=== PATIENT | female | born 1990 | race Caucasian/White ===

== ENCOUNTER 2019-11-12 19:43 | Emergency (ER) | payer OTHER ==
[2019-11-12] MEDS ORDERED: Cyclobenzaprine 10 MG Tab PO ONE (20:08)
[2019-11-12] MEDS ORDERED: Ketorolac 60 MG/2 ML SDV IM ONE (20:08)
--- NOTE | 2019-11-12 20:31 | EDM.PDOC ---
ED HPI GENERAL MEDICAL PROBLEM - General Stated Complaint: ARM INJURY Time Seen by Provider: 11/12/19 20:00 Source of Information: Reports: Patient History Limitations: Reports: No Limitations - History of Present Illness INITIAL COMMENTS - FREE TEXT/NARRATIVE: Patient presented to the ED because of right shoulder pain. She was lifting at work on November 09 and heard a pop on her right shoulder. The pain is sharp,6/10, worse with movement. - Related Data Home Meds: Home Meds Cyclobenzaprine [Flexeril] 10 mg PO TID PRN #30 tab 11/12/19 [Rx] Ibuprofen 800 mg PO TID PRN #30 tablet 11/12/19 [Rx] Review of Systems - Review of Systems Review Of Systems: See Below Constitutional: Reports: No Symptoms Ears: Reports: No Symptoms Nose: Reports: No Symptoms Mouth/Throat: Reports: No Symptoms Respiratory: Reports: No Symptoms Cardiovascular: Reports: No Symptoms GI/Abdominal: Reports: No Symptoms Genitourinary: Reports: No Symptoms Musculoskeletal: Reports: Shoulder Pain Skin: Reports: No Symptoms ED EXAM, GENERAL - Physical Exam Exam: See Below Exam Limited By: No Limitations General Appearance: Alert, No Apparent Distress Ears: Normal External Exam Nose: Normal Inspection, Normal Mucosa, No Blood Throat/Mouth: Normal Inspection, Normal Lips, Normal Teeth Head: Atraumatic, Normocephalic Neck: Normal Inspection, Supple, Non-Tender, Full Range of Motion Respiratory/Chest: No Respiratory Distress, Lungs Clear, Normal Breath Sounds Cardiovascular: Normal Peripheral Pulses, Regular Rate, Rhythm, No Edema, No Gallop GI/Abdominal: Normal Bowel Sounds, Soft, Non-Tender, No Organomegaly Back Exam: Normal Inspection, Full Range of Motion Extremities: Normal Inspection, Non-Tender, Other (decrease ROM rt shoulder with tenderness over the AC joint area) Neurological: Alert, Oriented Course - Vital Signs Text/Narrative:: Xray Rt shoulder reviewed with patient Toradol 60 mg IM x1 Flexeril 10 mg po x1 Last Recorded V/S: Last Vital Signs Temp 36.4 C 11/12/19 19:56 Pulse 104 H 11/12/19 19:56 Resp 16 11/12/19 19:56 BP 132/84 11/12/19 19:56 Pulse Ox 99 11/12/19 19:56 - Orders/Labs/Meds Orders: Active Orders 24 hr Category Date Time Status Shoulder Comp Rt [CR] Stat Exams 11/12/19 20:09 Taken Meds: Medications Discontinued Medications Generic Name Dose Route Start Last Admin Trade Name Yawq PRN Reason Stop Dose Admin Cyclobenzaprine HCl 10 mg 11/12/19 20:08 11/12/19 20:20 Flexeril PO 11/12/19 20:09 10 mg ONETIME ONE Administration Ketorolac Tromethamine 60 mg 11/12/19 20:08 11/12/19 20:20 Toradol IM 11/12/19 20:09 60 mg ONETIME ONE Administration Departure - Departure Time of Disposition: 20:30 Disposition: Home, Self-Care 01 Condition: Good Clinical Impression: Shoulder injury - Discharge Information Prescriptions: Cyclobenzaprine [Flexeril] 10 mg PO TID PRN #30 tab PRN Reason: Spasms Ibuprofen 800 mg PO TID PRN #30 tablet PRN Reason: Pain Instructions: Shoulder Sprain Referrals: PCP,None [Primary Care Provider] - Additional Instructions: Please read discharge instructions on shoulder injury Take Ibuprofen 800 mg with tylenol 1000 mg every 8 hours as needed for pain Flexeril 10 mg every 8 hours as needed for muscle spasm Follow up if symptoms persidt Sepsis Event Note (ED) - Focused Exam Vital Signs: Vital Signs Temp Pulse Resp BP Pulse Ox 11/12/19 19:56 36.4 C 104 H 16 132/84 99 - My Orders Last 24 Hours: My Active Orders 11/12/19 20:09 Shoulder Comp Rt [CR] Stat - Assessment/Plan Last 24 Hours: My Active Orders 11/12/19 20:09 Shoulder Comp Rt [CR] Stat
== END 2019-11-12 21:20 | disposition home or self-care (01) ==
LOC: FB.ED 19:43
DX: S49.91XA Unspecified injury of right shoulder and upper arm, initial encounter (principal); X50.0XXA Overexertion from strenuous movement or load, initial encounter; Y92.89 Other specified places as the place of occurrence of the external cause; Y99.0 Civilian activity done for income or pay
CPT/HCPCS: 73030; 96372; 99000; 99283; A9270; J1885